=== PATIENT | female | born 1975 | race Hispanic/Latino ===

== ENCOUNTER 2018-04-25 09:03 | Emergency (ER) | payer OTHER ==
--- NOTE | 2018-04-25 09:41 | ED PDOC ---
Lower Extremity Pain/Injury Time Seen by Provider: 04/25/18 09:14 Chief Complaint (Nursing): Lower Extremity Problem/Injury Chief Complaint (Provider): Knee and Ankle Pain History Per: Patient History/Exam Limitations: no limitations Onset/Duration Of Symptoms: Days (1), Worse Since Current Symptoms Are (Timing): Still Present Additional Complaint(s): 42 year old female presents to the ED for an evaluation of her right leg. Patient reports while walking on the sidewalk, she twisted her right knee and ankle yesterday. She was able to walk afterwards but currently, patient is not able to bear weight on her foot or ambulate. Otherwise she denies numbness, tingling or fall. PMD: Non CPH Provider - Knee Description Of Injury: Twisted Currently Unable To: Bear Weight - Ankle/Foot Description Of Injury: Twisted Currently Unable To: Bear Weight Past Medical History Reviewed: Historical Data, Nursing Documentation, Vital Signs Vital Signs: Last Vital Signs Temp 98.5 F 04/25/18 09:07 Pulse 99 H 04/25/18 09:07 Resp 16 04/25/18 09:07 BP 126/70 04/25/18 09:07 Pulse Ox 98 04/25/18 09:07 - Medical History PMH: No Chronic Diseases - Family History Family History: States: Unknown Family Hx - Social History Current smoker - smoking cessation education provided: No Alcohol: None Drugs: Denies - Home Medications Home Medications: Ambulatory Orders Medication Instructions Recorded Acetaminophen [Tylenol 325mg tab] 2 tab PO Q4H PRN #20 tab 04/25/18 - Allergies Allergies/Adverse Reactions: Allergies Allergy/AdvReac Type Severity Reaction Status Date / Time No Known Allergies Allergy Verified 04/25/18 09:30 Review of Systems ROS Statement: Except As Marked, All Systems Reviewed And Found Negative Constitutional: Negative for: Fever, Chills Musculoskeletal: Positive for: Foot Pain (right), Other (right knee pain) Neurological: Negative for: Weakness, Numbness Psych: Negative for: Suicidal ideation Physical Exam - Reviewed Nursing Documentation Reviewed: Yes Vital Signs Reviewed: Yes - Physical Exam Appears: Positive for: Well, Non-toxic, No Acute Distress Head Exam: Positive for: ATRAUMATIC, NORMAL INSPECTION, NORMOCEPHALIC Skin: Positive for: Normal Color, Warm, Dry. Negative for: Rash Eye Exam: Positive for: Normal appearance Pulses-Dorsalis Pedis (R): 2+ Extremity: Positive for: Tenderness, Capillary Refill, Swelling (right lateral foot/ankle ), Other (erythema on right lateral foot/ankle ). Negative for: Normal ROM (decreased ROM seondary to pain), Deformity Neurologic/Psych: Positive for: Alert, Oriented (x3). Negative for: Motor/Sensory Deficits - ECG O2 Sat by Pulse Oximetry: 98 (RA) Pulse Ox Interpretation: Normal Medical Decision Making Medical Decision Making: Time: 929 Impression: right foot pain Plan: ED urine Ibuprofen 600mg Ankle right 3 views [RAD] Foot right 3 views [RAD] Reevaluation Time: 944 Discussed case with podiatry Accession No. : [id number] Patient Name / ID : SZNARAYAN SPARKS / [id number] Exam Date : 04/25/2018 09:30:06 ( Approved ) Study Comment : Sex / Age : F / 42Y Creator : Deandre Stewart MD Dictator : Deandre Stewart MD High Lead Yarder : L Tacker : Deandre Stewart MD Approver2 : Report Date : 04/25/2018 14:42:44 My Comment : Date of service: 04/25/2018 PROCEDURE: Right Ankle Radiographs. HISTORY: Twisting injury COMPARISON: The correlation made with concurrent radiographs of the right foot. FINDINGS: BONES: Normal. No fracture. JOINTS: Normal. No osteoarthritis. Ankle mortise maintained. Talar dome intact SOFT TISSUES: Normal. OTHER FINDINGS: None. IMPRESSION: Normal right ankle radiographs. Accession No. : [id number] Patient Name / ID : SZCZESNY RBIDGER / [id number] Exam Date : 04/25/2018 09:35:20 ( Approved ) Study Comment : Sex / Age : F / 42Y Creator : Deandre Stewart MD Dictator : Deandre Stewart MD High Lead Yarder : L Tacker : Deandre Stewart MD Approver2 : Report Date : 04/25/2018 14:43:41 My Comment : Date of service: 04/25/2018 PROCEDURE: Right Foot Radiographs. HISTORY: Twisting injury COMPARISON: Correlation made with concurrent radiographs of the right ankle FINDINGS: BONES: Normal. No fracture. JOINTS: Normal. SOFT TISSUES: Normal. OTHER FINDINGS: None. IMPRESSION: Normal right foot radiographs. Scribe Attestation: Documented by Stefano Alonzo, acting as a scribe for Alma Jacobsen MD. Provider Scribe Attestation: All medical record entries made by the Scribe were at my direction and personally dictated by me. I have reviewed the chart and agree that the record accurately reflects my personal performance of the history, physical exam, medical decision making, and the department course for this patient. I have also personally directed, reviewed, and agree with the discharge instructions and disposition. Disposition - Clinical Impression Clinical Impression: Ankle sprain - Disposition Referrals: Madeline Peña DPM [Staff Provider] - Disposition: Routine/Home Disposition Time: 10:40 Condition: STABLE Additional Instructions: CALL DR. PEÑA FOR APPOINTMENT. Prescriptions: Acetaminophen [Tylenol 325mg tab] 2 tab PO Q4H PRN #20 tab PRN Reason: Fever >100.4 F Instructions: Ankle Sprain Forms: [employer] (Maltese)
--- NOTE | 2018-04-25 10:30 | CP.PCM.CON ---
History of Present Illness - History of Present Illness History of Present Illness: Podiatry consult note for Dr. Peña 42 year old female with no PMHx presents to the ED for an evaluation right ankle pain. Patient reports while walking in [facility] yesterday, she missed a step and twisted her ankle. Patient states she walked the entire rest of the day, and since then the pain has worsened. Patient reports icing and elevating at home. Patient states she took Tylenol for pain, which provided relief. Patient is not able to bear weight on her foot or ambulate. Otherwise she denies numbness, tingling or fall. PMD: Non CPH Provider PMHx: denied by patient PSHx: denied by patient Allergies: None Review of Systems - Review of Systems All systems: reviewed and no additional remarkable complaints except Review of Systems: As per HPI Past Patient History - Infectious Disease Hx of Infectious Diseases: None - Past Social History Alcohol: None Drugs: Denies - PSYCHIATRIC Hx Substance Use: No - SURGICAL HISTORY Hx Surgeries: No - ANESTHESIA Hx Anesthesia: No Meds Home Medications: Home Medication List Medication Instructions Recorded Confirmed Type Ibuprofen [Motrin] 600 mg PO Q6H PRN #20 tab 04/25/18 Rx Allergies/Adverse Reactions: Allergies Allergy/AdvReac Type Severity Reaction Status Date / Time No Known Allergies Allergy Verified 04/25/18 09:30 Physical Exam - Constitutional Appears: Well, Non-toxic, No Acute Distress - Head Exam Head Exam: ATRAUMATIC, NORMOCEPHALIC - Extremities Exam Additional comments: Right Lower Extremity Exam VASC: DP and PT 2/4 palpable, CFT less than 3 seconds X 10, TG within normal limits, minimal edema to the right lateral ankle DERM: minimal erythema to the right lateral ankle, no open lesions, no clinical signs of infection NEURO: epicritic and protective sensations intact ORTHO: maximum pain on palpation to the ATFL, minimal diffuse pain to the lateral ankle region, pain with inversion, and plantarflexion, no pain medially, MSK 5/5 - Neurological Exam Neurological exam: Alert, Oriented x3 - Psychiatric Exam Psychiatric exam: Normal Affect, Normal Mood Results - Vital Signs Recent Vital Signs: Last Vital Signs Temp 98.5 F 04/25/18 09:07 Pulse 99 H 04/25/18 09:07 Resp 16 04/25/18 09:07 BP 126/70 04/25/18 09:07 Pulse Ox 98 04/25/18 09:50 Assessment & Plan - Assessment and Plan (Free Text) Assessment: 42 y/o female seen and evaluated for right ankle sprain Plan: Patient seen and evaluated Plan discussed with Dr. Peña Chart, labs and vitals reviewed Right Foot and Ankle X-rays- wet read, no fracture of dislocation noted, final read pending Patient explained likely etiology of pain due to ankle sprain Patient placed in a posterior splint and provided with crutches Patient taught how to ambulate with crutches Patient educated on RICE protocol, and to return to ED if symptoms worsen Patient demonstrated verbal understanding Patient will follow up with Dr. Peña in her office Thank you for the consult - Date & Time Date: 04/25/18 Time: 10:35
[2018-04-25 10:49] VITALS: BP 111/69; PULSE 83; RESP 18; TEMP 98.6
--- NOTE | 2018-04-25 14:46 | RAD ---
Date of service: 04/25/2018 PROCEDURE: Right Ankle Radiographs. HISTORY: Twisting injury COMPARISON: The correlation made with concurrent radiographs of the right foot. FINDINGS: BONES: Normal. No fracture. JOINTS: Normal. No osteoarthritis. Ankle mortise maintained. Talar dome intact SOFT TISSUES: Normal. OTHER FINDINGS: None. IMPRESSION: Normal right ankle radiographs.
--- NOTE | 2018-04-25 14:47 | RAD ---
Date of service: 04/25/2018 PROCEDURE: Right Foot Radiographs. HISTORY: Twisting injury COMPARISON: Correlation made with concurrent radiographs of the right ankle FINDINGS: BONES: Normal. No fracture. JOINTS: Normal. SOFT TISSUES: Normal. OTHER FINDINGS: None. IMPRESSION: Normal right foot radiographs.
[2018-04-30 07:56] VITALS: O2SAT 98
== END 2018-04-25 10:45 | disposition home or self-care (01) ==
LOC: H.ER 09:03
DX: S93.401A Sprain of unspecified ligament of right ankle, initial encounter (principal); X50.9XXA Other and unspecified overexertion or strenuous movements or postures, initial encounter; Y93.01 Activity, walking, marching and hiking; Y92.480 Sidewalk as the place of occurrence of the external cause